=== PATIENT | female | born 1960 | race Caucasian/White ===

== ENCOUNTER 2018-12-28 14:58 | Inpatient (IN) | payer OTHER ==
[~2018-12-28] VITALS: Ht 165.1 cm; Wt 56.2 kg
--- NOTE | 2018-12-28 14:58 | NUR ---
PT BIBFAMILY FROM HOME FOR JAUNDICE; PT AAOX4, PT ON MONITOR, VSS, RESPIRATIONS EVEN AND UNLABORED, NO SOB, NAD NOTED. PENDING ER PROVIDER MARY JANE
[2018-12-28 16:04] LABS: BASOPHILS % (AUTO) 0.5 % (0.0-2.0); EOSINOPHILS % (AUTO) 0.1 % (0.0-6.0); HEMATOCRIT 33 % (33-45); HEMOGLOBIN 11.5 g/dL (11.5-14.8); LYMPHOCYTES # (AUTO) 0.6 /CMM (0.8-4.8); LYMPHOCYTES % (AUTO) 5.9 % (20.0-44.0); MEAN CORPUSCULAR HGB CONC 35 g/dl (31.0-36.0); MEAN CORPUSCULAR VOLUME 112 fL (82-100); MONOCYTES # (AUTO) 1.3 /CMM (0.1-1.30); MONOCYTES % (AUTO) 11.8 % (2.0-12.0); NEUTROPHILS # (AUTO) 8.7 /CMM (1.8-8.9); NEUTROPHILS % (AUTO) 81.7 % (43.0-81.0); PLATELET COUNT (AUTO) 193 /CMM (150-450); RED BLOOD CELL COUNT(AUTO) 2.96 MIL/uL (4.0-5.2); WHITE BLOOD COUNT (AUTO) 10.7 K/uL (4.3-11.0)
[2018-12-28 16:13] LABS: CALCIUM, SERUM 8.6 mg/dL (8.5-10.1); CREATININE 0.4 mg/dL (0.6-1.3); POTASSIUM 2.9 mmol/L (3.5-5.1)
[2018-12-28 16:19] LABS: ALBUMIN 2.7 g/dL (3.4-5.0); BILIRUBIN,DIRECT 12.7 mg/dL (0.0-0.2); TOTAL PROTEIN, SERUM 6.7 g/dL (6.4-8.2)
[2018-12-28 16:48] LABS: BAND % (MANUAL) 4 % (0.0-5.0); EOSINOPHILS % (MANUAL) 2 % (0-4); LYMPHOCYTES % (MANUAL) 4 % (16-48); MONOCYTES % (MANUAL) 10 % (0-11.0); NEUTROPHILS % (MANUAL) 80 (42-76)
[2018-12-28] MEDS ORDERED: ZOLPIDEM TARTRATE 5 MG TABLET PO PRN (19:30)
[2018-12-28] MEDS ORDERED: ACETAMINOPHEN ES 500 MG TABLET PO PRN (19:30)
[2018-12-28] MEDS ORDERED: IOHEXOL-300 100 ML VIAL IV ONE (19:35)
[2018-12-28] MEDS ORDERED: CT SWABBABLE VALVE TRANS SET 1 EA INFUS.SET MC ONE (19:35)
[2018-12-28] MEDS ORDERED: IV NS 0.9% 250 ML IV ONE (19:36)
--- NOTE | 2018-12-28 19:51 | NUR ---
TRANSFERRED PT TO [facility] 3RD FLOOR. PT IS MEDSUR;TRANSPORTED BY EMT
--- NOTE | 2018-12-28 19:51 | NUR ---
REPORT GIVEN TO BRITTON ST[employer]LES FOR ANN
[2018-12-28 20:00] VITALS: BP 119/69
--- NOTE | 2018-12-28 20:00 | NUR ---
MS ADULT EDUCATION MANAGER NOTE ADMITTED FORM ER PER FABIAN THIS 58 YO FEMALE,ALERT,ORIENTED X4, DIAGNOSIS OF OBSTRUCTIVE JAUNDICE UNDER DR BRITT.AMBULATORY WITH STEADY GAIT.NOTED NON PITTING EDEMA +1 ON BOTH LOWER EXTREMITIES.NO SKIN ISSUES.NOTED ICTERIC SCLERA AND MILD GENERALIZED JAUNDICE.WITH SALINE LOCK RIGHT WRIST INTACT AND PATENT.CALL LIGHT IN REACH,NEEDS ANTICIPATED.
[2018-12-28] MEDS: POTASSIUM CHLORIDE 20 MEQ TAB.PRT.SR PO SCH ×2 (20:25→22:29)
--- NOTE | 2018-12-28 20:25 | NUR ---
MS JHOAN NOTES K LEVEL 2.9,STARTED ON K-DUR 40MG PO X 2 DOSES.
[2018-12-28] MEDS: Potassium Chloride 20 MEQ in IV NS 0.9% 1,000 ML IV PRN (20:33)
--- NOTE | 2018-12-28 20:33 | NUR ---
MS RN NOTES STARTED ON IVF NS 1LITER WITH 20MEQ KCL AT 75ML/HR RATE VIA IV PUMP.
--- NOTE | 2018-12-28 21:05 | NUR ---
RESOURCE RN NOTES: ADMISSION DOCUMENTATION COMPLETED. PT A/O X4, AMBULATORY, FRISIAN SPEAKING, WITH COHERENT JUDGMENT. WILL BE ADMITTED UNDER THE SERVICE OF DR BRITT. WAS INTERVIEWED BY ME AT BED SIDE. CLAIMED TO HAVE NO MEDICAL HISTORY EXCEPT FROM CARPAL TUNNEL SX 30 YRS AGO. REFUSED FLU SHOT AND PNA VACCINE, EDUCATION PROVIDED TO THE PT. PT CLAIMED THAT SHE LOSS WEIGHT GREATER THAN 15 LBS OVER THE PAST FEW MONTHS, CLAIMED TO HAVE NO APPETITE. ASSIGNED RN TO COMPLETE INITIAL PHYSICAL ASSESSMENT AND ASSUMED CARE OF THE PT.
--- NOTE | 2018-12-29 06:22 | NUR ---
MS RN NOTES AWAKE NOW,DENIES ABDOMINAL PAIN,SLEPT WELL,IVF IN PROGRESS.IN NO ACUTE DISTRESS.WILL ENDORSE TO DAYNURSE FOR ANN.
--- NOTE | 2018-12-29 07:45 | NUR ---
MS RN Opening Notes Patient awake, resting in bed. Alert and oriented x3, Nigerian speaking. No complaints of dizziness or abdominal pain at this time. Respirations even and unlabored on room air, no acute distress noted. Peripheral IV to the right forearm 20 gauge, intact, patent and infusing NS with 20 mEq of KCL at 75 mL. Patient currently NPO since midnight for MRCP without contrast, consent form signed and checklist completed. Updated patient on current plan of care and safety meaures. Safety and fall precautions in place: bed in lowest and locked position, side rails up x2, bed alarm on, call light and personal possessions within reach. Patient verbalized understanding. Will continue to monitor and intervene as needed.
[2018-12-29 07:48] LABS: ALBUMIN 2.4 g/dL (3.4-5.0); BILIRUBIN,TOTAL 13.8 mg/dL (0.2-1.0); CALCIUM, SERUM 8.3 mg/dL (8.5-10.1); CREATININE 0.4 mg/dL (0.6-1.3); POTASSIUM 4.3 mmol/L (3.5-5.1); TOTAL PROTEIN, SERUM 5.8 g/dL (6.4-8.2)
[2018-12-29 08:00] VITALS: BP_SYST 105; BP_SYST 112; BP_DIAS 57; BP_DIAS 62
[2018-12-29] MEDS ORDERED: PHYTONADIONE INJ 10 MG/1 ML AMPUL SQ ONE (08:00)
[2018-12-29] MEDS ORDERED: LORAZEPAM 1 MG TABLET PO PRN (08:30)
[2018-12-29] MEDS ORDERED: PROPRANOLOL LA 60 MG CAP.SA.24H PO SCH (09:00)
[2018-12-29] MEDS: FOLIC ACID 1 MG TABLET PO SCH (09:28)
[2018-12-29] MEDS: THIAMINE HCL 100 MG TABLET PO SCH (09:28)
--- NOTE | 2018-12-29 10:26 | NUR ---
PER JHOAN LAKE AT 2152 CONSENT FOR PARACENTESIS IS NOT SIGNED
[2018-12-29] MEDS: SPIRONOLACTONE 25 MG TABLET PO SCH (10:51)
[2018-12-29] MEDS: FUROSEMIDE 20 MG TABLET PO SCH (10:52)
[2018-12-29] MEDS: PROPRANOLOL HCL 10 MG TABLET PO SCH ×2 (10:54→20:20)
[2018-12-29] MEDS: Potassium Chloride 20 MEQ in IV NS 0.9% 1,000 ML IV PRN (11:16)
--- NOTE | 2018-12-29 14:10 | NUR ---
Housekeeping Room Attendant Consult: SW received consult re: alcohol abuse. Patient is a 58 year-old female admitted to Med/Surg after she came in with abdominal distension for 3 days and yellowed skin & eyes for 2-3 days. Per chart, pt has been drinking ETOH (Vodka and Wine) daily since she was young. SW met with the patient at bedside to discuss above consult. Patient admitted to drinking ETOH daily. Patient reported drinking 2-3 shots of Vodka per day, and reported that she used to drink about 2-3 glasses of wine a day. Pt stated she stopped drinking wine and changed to Vodka because "wine made my stomach acidic." Per patient, her last drink of ETOH was about 1 week ago. Pt reported that she stopped drinking because she "wanted to be healthier...I'm almost 59." Patient presented calm, cooperative, and pleasant during the consult; however, seemed guarded with this check writer in regards to her ETOH use. Patient denies history of Mental Health Issues, drug use, or tobacco products. Patient reported that she has gained 15 pounds within a couple of weeks because "my kids were making me eat." Patient reported that she was underweight, and expressed gratitude toward her children for helping her eat. Patient's mood seemed euthymic with congruent affect. Patient reports that she has a strong support system with both of her children: 1 son and 1 daughter with whom she lives and are both adults. Patient expressed pride when speaking about her children. SW provided education about local, outpatient substance abuse/ETOH referrals, and patient was agreeable to accepting them. MIGUEL gave patient referrals to [facility] ([phone]); [facility] [[address] [place] [address]; [phone]]; [facility] [[address] [place] [address]; [phone]]; [facility] [[address] [place] [address]; [phone]]; [facility] [[address]; [place] [address]; [phone]]; [facility] [[address] [place] [address]; [phone]], and the [facility] [[address] [place] [address]; [phone]]. MIGUEL collaborated with pt's RN, [employer] and laundry or dry cleaners counter clerk, Mitzy regarding this case. SW will continue to be available for any other Housekeeping Room Attendant needs.
--- NOTE | 2018-12-29 19:00 | NUR ---
MS RN Closing Notes Patient awake, resting in bed. Alert and oriented x4, [place] speaking. No complaints of dizziness or abdominal pain at this time. Respirations even and unlabored on room air, no acute distress noted. Peripheral IV to the right forearm 20 gauge, intact, patent and infusing NS with 20 mEq of KCL at 75 mL/hr. Tolerating regular diet. Updated patient and family on current plan of care and safety measures. All due medications given as ordered. Dr. Torres aware of update on status of liver biopsy procedure due to no pathologist available until Tuesday01/01/19. Safety and Fall precautions in place: bed in lowest and locked position, side rails up x2, bed alarm on, call light and personal possessions within reach. Patient verbalized understanding. Endorse to night custodian RN for continuity of care.
--- NOTE | 2018-12-29 19:20 | NUR ---
RN NOTES: RECEIVED AWAKE ON BED, SEMI FOWLERS POSITION,ON ROOM AIR 99%,NO SOB OR SIGN OF RESPIRATORY DISTRESS NOTED,ORIENTED TO UNIT AND STAFF,a/oX4, AMBULATORY, FALL,SAFETY AND ASPIRATION PRECAUTION OBSERVED, IVF OF NS+10mEq KCL AT 75CC/HR ONGOING AT RFA G#20, NO PAIN AND DISCOMFORT AT THIS TIME, CALL LIGHT KEPT WITHIN EASY REACH, INSTRUCT TO CALL FOR ASSISTANCE WHENEVER SHE GOES TO THE BATHROOM.
--- NOTE | 2018-12-29 19:52 | NUR ---
Met with patient, she is alert and pleasant. Patient has hx of alcohol abuse. States she drinks 2-3 shots of Vodka per day, and reported that she used to drink about 2-3 glasses of wine a day. States her last alcohol intake was about 1 week ago. She lives locally with her son and daughter on the second floor apartment. She is ambulatory and independent with adl's. Denies DME or homehealth needs.Her pcp is Dr. Camilo Melgoza. Her family will provide ride when discharge. Addendum: 12/29/18 at 1951 by ROSLYN BOWMAN RN Amended: Links added.
[2018-12-29 20:00] VITALS: BP_SYST 105; BP_SYST 125; BP_DIAS 62; BP_DIAS 80
--- NOTE | 2018-12-29 22:31 | NUR ---
RN NOTES: AWAKE CALLS AND NEEDS ATTENDED, ASSISTED TO BATHROOM, STILL WITH BILATERAL NON PITTING EDEMA, ASCITES NOTED,SLIGHTLY JAUNDICE.AROUND 1999 KRISTIE (SON) CALLED, WITH PATIENTS PERMISSION RN GIVE UPDATES WITH MEDICATION AND UPCOMING PROCEDURE,SON REQUEST TO SPEAK WITH TOMORROW.WILL ENDORSED TO THE NEXT SHIFT.
[2018-12-30] MEDS: Potassium Chloride 20 MEQ in IV NS 0.9% 1,000 ML IV PRN (00:52)
--- NOTE | 2018-12-30 00:56 | NUR ---
RN NOTES: AWAKE IN BETWEEN, ASSISTED TO THE BATHROOM, NEEDS ATTENDED,IVF FINISHED, STARTED NEW BAG OF NS+20 mEq KCL AT 75ML/HR, KEPT COMFORTABLE IN BED, CALL LIGHT WITHIN EASY REACH.
--- NOTE | 2018-12-30 06:20 | NUR ---
RN NOTES: ABLE TO SLEEP AND REST, NO PAIN OR DISCOMFORT IN THE NIGHT,FOR LABS IN THE MORNING,IVF ONGOING,TO GET CONSENT FOR PARACENTESIS PRIOR TO CYSTOLOGY,CALL LIGHT WITHIN EASY REACH. KEPT ON CLOSE WATCH,ENDORSED TO NEXT SHIFT FOR CONTINUITY OF CARE
[2018-12-30] MEDS ORDERED: PANTOPRAZOLE 40 MG TABLET.DR PO SCH (07:30)
[2018-12-30 07:34] LABS: BASOPHILS # (AUTO) 0.1 /CMM (0.0-0.2); BASOPHILS % (AUTO) 0.8 % (0.0-2.0); EOSINOPHILS % (AUTO) 0.7 % (0.0-6.0); HEMATOCRIT 33 % (33-45); HEMOGLOBIN 11.1 g/dL (11.5-14.8); LYMPHOCYTES # (AUTO) 1.1 /CMM (0.8-4.8); LYMPHOCYTES % (AUTO) 9.3 % (20.0-44.0); MEAN CORPUSCULAR HGB CONC 34 g/dl (31.0-36.0); MEAN CORPUSCULAR VOLUME 112 fL (82-100); MONOCYTES # (AUTO) 1.2 /CMM (0.1-1.30); MONOCYTES % (AUTO) 10.5 % (2.0-12.0); NEUTROPHILS % (AUTO) 78.7 % (43.0-81.0); PLATELET COUNT (AUTO) 263 /CMM (150-450); RED BLOOD CELL COUNT(AUTO) 2.91 MIL/uL (4.0-5.2); WHITE BLOOD COUNT (AUTO) 11.4 K/uL (4.3-11.0)
[2018-12-30 07:53] LABS: ALBUMIN 2.3 g/dL (3.4-5.0); BILIRUBIN,TOTAL 14.8 mg/dL (0.2-1.0); CALCIUM, SERUM 8.6 mg/dL (8.5-10.1); CREATININE 0.4 mg/dL (0.6-1.3); POTASSIUM 3.6 mmol/L (3.5-5.1); TOTAL PROTEIN, SERUM 5.7 g/dL (6.4-8.2)
[2018-12-30 08:00] VITALS: BP 99/51
--- NOTE | 2018-12-30 08:00 | NUR ---
RN NOTES RECEIVED PATIENT IN THE BED A/O X4. ENCOURAGED PATIENT EXPRESS FEELINGS AND CONCERNS. PATIENT HAS NO ACUTE RESPIRATORY DISTRESS, V/S STABLE, PATIENT REFUSED PAIN AT THIS TIME. PATIENT HAS DISTENDED ABDOMEN. SCHEDULED MEDICATION ADMINISTERED. HELD BP MEDICATION BECAUSE LOW BP, INFUSING NS WITH 20MEG KCL AT 75 ML/HR INTACT. PATIENT USING BATHROOM, CALL LIGHT WITHIN TO REACH, SAFETY PRECAUTION MAINTAINED ALL THE TIME.
[2018-12-30 08:11] VITALS: BP 99/51
[2018-12-30] MEDS: PROPRANOLOL HCL 10 MG TABLET PO SCH (09:00)
[2018-12-30] MEDS: SPIRONOLACTONE 25 MG TABLET PO SCH (09:08)
[2018-12-30] MEDS: FUROSEMIDE 20 MG TABLET PO SCH (09:09)
[2018-12-30] MEDS: FOLIC ACID 1 MG TABLET PO SCH (09:09)
[2018-12-30] MEDS: THIAMINE HCL 100 MG TABLET PO SCH (09:09)
--- NOTE | 2018-12-30 11:32 | NUR ---
RN NOTES\ PATIENT GOING TO HAVE A PARACENTESIS STAT ORDER WITH ULTRASOUND. PATIENT SIGN CONSENT FORM. FOOD AND BEVERAGE INTERN NOTIFIED.
[2018-12-30] MEDS ORDERED: PANT40TA2 PO (11:34)
[2018-12-30] MEDS ORDERED: FURO20TA4 PO (11:34)
[2018-12-30] MEDS ORDERED: SPIR25TA PO (11:34)
[2018-12-30] MEDS ORDERED: PROP10TA68 PO (11:34)
[2018-12-30 16:00] VITALS: BP 89/52
--- NOTE | 2018-12-30 16:01 | NUR ---
RN NOTES PATIENT PREPARED FOR US NEEDLE PARACENTESIS.
--- NOTE | 2018-12-30 18:00 | NUR ---
RN NOTES PARACENTESIS FINISHED REMOVED TOTAL OF 1630 ML OF BODY FLUIDS. PATIENT NOTES HER ABDOMEN STILL DISTENDED AND SHE NEEDED MORE FLUIDS TO BED REMOVED. SHE IS NOT WANTED GO HOME. CALLED DR BRITT AND PER MD GET TO ORDER DISCHARGE PATIENT HOME, PATIENT WILL FOLLOW PRIMARY MD. ORDER TAKEN AND CARRIED OUT. V/S TAKEN STABLE. TAKEN FLUIDS TO THE [facility] FOR BODY FLUID ANALYSES.
--- NOTE | 2018-12-30 19:05 | NUR ---
DISCHARGE NOTES PATIENT DISCHARGE HOME AT THIS TIME. PATIENT STABLE, V/S STABLE, NO COMPLAINING OF PAIN. MED RECONCILIATION REVIEWED AND EXPLAINED TO PATIENT. PATIENT VERBALIZED UNDERSTANDING. ALSO CALLED SON NAME SAME INFORMED PATIENT DISCHARGE PLANING. PATIENT HANDED PRESCRIPTION. PATIENT SIGN PAPERWORK, BELONGING WITH THE PATIENT. PATIENT WILL FOLLOW PRIMARY MD. ESCORTED PATIENT TO THE LOBBY FOR SAFETY. PATIENT MEAT STOCKER BY DAUGHTER.
[2018-12-31] MEDS ORDERED: SPIRONOLACTONE 25 MG TABLET PO SCH (09:00)
[2019-01-01 13:09] LABS: ANTI-MITOCHONDRIAL AB <20.0 Units (0.0-20.0)
== END 2018-12-30 19:10 | disposition home or self-care (01) | DRG 434 ==
LOC: ER 15:02 → MED 18:40
PROVIDERS: ADMIT Internal Medicine; ATTEND Internal Medicine
PROC: 0W9G3ZZ Drainage of Peritoneal Cavity, Percutaneous Approach (ICD-10-PCS; principal; 2018-12-30)
DX: K70.31 Alcoholic cirrhosis of liver with ascites (principal); F10.20 Alcohol dependence, uncomplicated; Y90.9 Presence of alcohol in blood, level not specified
CPT/HCPCS: 36415; 74181-TC; 76700-TC; 76942-TC; 80048-TC; 80053-TC; 80074; 80076-TC; 82105; 82140-TC; 82728-TC; 83516; 85025-TC; 85610-TC; 85730-TC; 87070-TC; 87081-TC; 89051-TC; G0378; J3430; J3480; J7030; J7050; Q9967